=== PATIENT | female | born 2000 | race Hispanic/Latino ===

== ENCOUNTER 2020-06-28 13:14 | Emergency (ER) | payer OTHER, SELFPAY ==
--- NOTE | 2020-06-28 14:58 | RAD REPORT ---
EXAM DESCRIPTION: US - Transvaginal OB - 06/28/2020 2:44 pm CLINICAL HISTORY: VAGINAL BLEEDING COMPARISON: No comparisons FINDINGS: A normal IUP is not seen within the endometrium. The endometrium measures 8 mm and is hete rogenous with fluid present. Right ovarian cyst is present measuring 3 cm. Left ovary is normal. Normal Doppler blood flow was dem onstrated to both ovaries. IMPRESSION: No normal IUP is seen. In the setting of a positive HCG level, this would indicate a pre gnancy of unknown location. Recommend follow-up serial HCG levels and follow-up ultrasound in 7-10 da ys.
[2020-06-28 15:06] LABS: Urine Blood 3+ (NEG); Urine Glucose NEGATIVE (NEG); Urine Protein TRACE (NEG); Urine Specific Gravity 1.025 (1.005-1.030)
[2020-06-28 18:03] LABS: Absolute Lymphocytes (CBC) 3.8 K/uL (0.7-4.9); Basophils % 0.6 % (0-1.3); Hematocrit 40.5 % (36.0-45.0); Lymphocytes % 24.7 % (15.3-44.8); RBC Red Blood Cell Count 4.63 M/uL (3.86-4.86)
[2020-06-28 18:32] LABS: Potassium 3.7 mmol/L (3.5-5.1)
--- NOTE | 2020-06-28 18:38 | EDPHYS ---
Physician Documentation [facility] Name: Smiley Jett Age: 19 yrs Sex: Female : 2000 Arrival Date: 06/28/2020 Time: 13:16 Bed 20 Private MD: ED Physician Hi Lewis HPI: 06/28 17:58 This 19 yrs old Female presents to ER via Ambulatory with complaints of kb Vaginal Bleeding, Dizziness. 17:58 The patient presents with vaginal bleeding that is moderate, with clots. Onset: The kb symptoms/episode began/occurred 12 day(s) ago. Modifying factors: The symptoms are alleviated by nothing, the symptoms are aggravated by nothing. Associated signs and symptoms: Pertinent positives: vaginal bleeding. Severity of symptoms: At their worst the symptoms were moderate, in the emergency department the symptoms are unchanged. The patient's method of control includes nexplanon. The patient has not experienced similar symptoms in the past. The patient has not recently seen a physician. Pt reports her period started on 06/16/20 and the flow has gotten worse over the last few days. States she has been fatigued and lightheaded at times so she called her [employer] and was told to come to the ER for eval. Historical: - Allergies: 13:26 PENICILLINS; ss - PMHx: 13:26 Ovarian cyst; fibroid; ss - Immunization history:: Adult Immunizations up to date. - Social history:: Smoking status: Patient denies any tobacco usage or history of. ROS: 17:51 Constitutional: Negative for fever, chills, and weight loss, Cardiovascular: Negative kb for chest pain, palpitations, and edema, Respiratory: Negative for shortness of breath, cough, wheezing, and pleuritic chest pain, Abdomen/GI: Negative for abdominal pain, nausea, vomiting, diarrhea, and constipation, MS/Extremity: Negative for injury and deformity, Skin: Negative for injury, rash, and discoloration. 17:51 : Positive for vaginal bleeding. 17:51 Neuro: Positive for dizziness. Exam: 17:58 Constitutional: This is a well developed, well nourished patient who is awake, alert, kb and in no acute distress. Head/Face: Normocephalic, atraumatic. Chest/axilla: Normal chest wall appearance and motion. Nontender with no deformity. No lesions are appreciated. Cardiovascular: Regular rate and rhythm with a normal S1 and S2. No gallops, murmurs, or rubs. Normal PMI, no JVD. No pulse deficits. Respiratory: Lungs have equal breath sounds bilaterally, clear to auscultation and percussion. No rales, rhonchi or wheezes noted. No increased work of breathing, no retractions or nasal flaring. Abdomen/GI: Soft, non-tender, with normal bowel sounds. No distension or tympany. No guarding or rebound. No evidence of tenderness throughout. Skin: Warm, dry with normal turgor. Normal color with no rashes, no lesions, and no evidence of cellulitis. MS/ Extremity: Pulses equal, no cyanosis. Neurovascular intact. Full, normal range of motion. Neuro: Awake and alert, GCS 15, oriented to person, place, time, and situation. Cranial nerves II-XII grossly intact. Motor strength 5/5 in all extremities. Sensory grossly intact. Cerebellar exam normal. Normal gait. Vital Signs: 13:22 BP 131 / 81; Pulse 74; Resp 15; Temp 97.0(TE); Pulse Ox 98% on R/A; Weight 74.84 kg; ss Height 5 ft. 2 in. (157.48 cm); Pain 0/10; 17:50 BP 110 / 70; Pulse 75; Resp 18; Pulse Ox 100% on R/A; ph 19:00 BP 102 / 66 Supine; Pulse 79; ph 19:00 BP 99 / 61 Sitting; Pulse 72; ph 19:00 BP 115 / 79 Standing; Pulse 80; Resp 18; Temp 97.2; Pulse Ox 100% on R/A; ph 13:22 Body Mass Index 30.18 (74.84 kg, 157.48 cm) ss MDM: 13:28 Patient medically screened. kb 17:55 Data reviewed: vital signs, nurses notes. Data interpreted: Pulse oximetry: on room air kb is 100 %. Interpretation: normal. Counseling: I had a detailed discussion with the patient and/or guardian regarding: the historical points, exam findings, and any diagnostic results supporting the discharge/admit diagnosis, lab results, radiology results, the need for outpatient follow up, an OB/Gyne specialist, to return to the emergency department if symptoms worsen or persist or if there are any questions or concerns that arise at home. 06/28 14:14 Order name: Urine Dipstick--Ancillary (enter results); Complete Time: 15:07 bd 06/28 14:14 Order name: Urine --Ancillary (enter results); Complete Time: 15:07 bd 06/28 13:29 Order name: US Transvaginal Ob; Complete Time: 15:00 kb 06/28 14:17 Order name: CBC with Diff; Complete Time: 18:33 kb 06/28 14:17 Order name: Basic Metabolic Panel; Complete Time: 18:32 kb 06/28 14:17 Order name: Type And Screen kb 06/28 13:29 Order name: Urine Dipstick-Ancillary (obtain specimen); Complete Time: 16:39 kb 06/28 14:17 Order name: Orthostatics; Complete Time: 19:05 kb Administered Medications: No medications were administered Disposition: 06/29 07:33 Co-signature as Attending Physician, Hi Lewis MD I agree with the assessment and kdr plan of care. Disposition: 06/28/20 18:37 Discharged to Home. Impression: Abnormal uterine and vaginal bleeding, unspecified. - Condition is Stable. - Discharge Instructions: Abnormal Uterine Bleeding, [id number]. - Medication Reconciliation Form, Thank You Letter, Antibiotic Education, Prescription Opioid Use form. - Follow up: Emergency Department; When: As needed; Reason: Worsening of condition. Follow up: Private Physician; When: 2 - 3 days; Reason: Recheck today's complaints, Continuance of care, Re-evaluation by your physician. Signatures: Dispatcher [employer] [facility] Enedelia Emmanuel, ALF-C PROBATION WORKER-Hi Louis MD MD [facility] Diane Colunga RN RN ss Hall, Patricia, RN RN ph Corrections: (The following items were deleted from the chart) 06/28 19:07 18:37 06/28/2020 18:37 Discharged to Home. Impression: Abnormal uterine and vaginal ph bleeding, unspecified. Condition is Stable. Discharge Instructions: Abnormal Uterine Bleeding, [id number]. Forms are Medication Reconciliation Form, Thank You Letter, Antibiotic Education, Prescription Opioid Use. Follow up: Emergency Department; When: As needed; Reason: Worsening of condition. Follow up: Private Physician; When: 2 - 3 days; Reason: Recheck today's complaints, Continuance of care, Re-evaluation by your physician. kb
--- NOTE | 2020-06-28 18:38 | ER ---
Nurse's Notes [facility] Name: Smiley Jett Age: 19 yrs Sex: Female : 2000 Arrival Date: 06/28/2020 Time: 13:16 Bed 20 Private MD: Diagnosis: Abnormal uterine and vaginal bleeding, unspecified Presentation: 06/28 13:22 Chief complaint: Patient states: "I'm on my period and I'm bleeding a lot. I'm bleeding ss through an ultra tampon in 30 minutes. I've been feeling lightheaded and getting headaches." Pt reports her period began 06/16, but the heavy bleeding didn't start until 06/24.". Coronavirus screen: Client denies travel out of the [place] in the last 14 days. Ebola Screen: Patient denies exposure to infectious person. Patient denies travel to an Ebola-affected area in the 21 days before illness onset. Initial Sepsis Screen: Does the patient meet any 2 criteria? No. Patient's initial sepsis screen is negative. Does the patient have a suspected source of infection? No. Patient's initial sepsis screen is negative. Risk Assessment: Do you want to hurt yourself or someone else? Patient reports no desire to harm self or others. Onset of symptoms was June 16, 2020. 13:22 Method Of Arrival: Ambulatory ss 13:22 Acuity: NORMAN 3 ss Historical: - Allergies: 13:26 PENICILLINS; ss - PMHx: 13:26 Ovarian cyst; fibroid; ss - Immunization history:: Adult Immunizations up to date. - Social history:: Smoking status: Patient denies any tobacco usage or history of. Screenin:34 Abuse screen: Denies threats or abuse. Denies injuries from another. Nutritional ph screening: No deficits noted. Tuberculosis screening: No symptoms or risk factors identified. Fall Risk None identified. Assessment: 17:48 General: Appears in no apparent distress. comfortable, well groomed, Behavior is calm, ph cooperative, appropriate for age, Denies fever, feeling ill. Pain: Complains of pain in suprapubic area Quality of pain is described as crampy. Neuro: Level of Consciousness is awake, alert, obeys commands, Oriented to person, place, time, situation, Reports dizziness. Cardiovascular: Reports lightheadedness, Denies chest pain, shortness of breath, Capillary refill < 3 seconds in bilateral fingers Patient's skin is warm and dry. Respiratory: Airway is patent Respiratory effort is even, unlabored, Respiratory pattern is regular, symmetrical. GI: Abdomen is non-distended, Patient currently denies nausea, vomiting. : Reports cramping, in bilateral lower quadrant(s) vaginal bleeding that is with clots, heavy flow. Derm: Skin is intact, is healthy with good turgor, Skin is pink, warm \\T\\ dry. Musculoskeletal: Circulation, motion, and sensation intact. Range of motion: intact in all extremities. Vital Signs: 13:22 BP 131 / 81; Pulse 74; Resp 15; Temp 97.0(TE); Pulse Ox 98% on R/A; Weight 74.84 kg; ss Height 5 ft. 2 in. (157.48 cm); Pain 0/10; 17:50 BP 110 / 70; Pulse 75; Resp 18; Pulse Ox 100% on R/A; ph 19:00 BP 102 / 66 Supine; Pulse 79; ph 19:00 BP 99 / 61 Sitting; Pulse 72; ph 19:00 BP 115 / 79 Standing; Pulse 80; Resp 18; Temp 97.2; Pulse Ox 100% on R/A; ph 13:22 Body Mass Index 30.18 (74.84 kg, 157.48 cm) ss ED Course: 13:16 Patient arrived in ED. rg4 13:25 Triage completed. ss 13:26 Arm band placed on right wrist. ss 13:27 Endeelia Emmanuel [facility]. kb 13:27 Hi Lewis MD is Attending Physician. kb 14:45 US Transvaginal Ob In Process Unspecified. EDMS 17:18 Lindsay Chin, RN is Primary Nurse. ph 17:34 Patient has correct armband on for positive identification. Placed in gown. Bed in low ph position. Call light in reach. Pulse ox on. NIBP on. Door closed. Noise minimized. Warm blanket given. 17:49 Initial lab(s) drawn, by ED staff, sent to lab. Inserted saline lock: 22 gauge in right ph hand, using aseptic technique. Blood collected. 17:50 No provider procedures requiring assistance completed. ph 19:07 Primary Nurse role handed off by Lindsay Chin, RN mw2 19:07 IV discontinued, intact, bleeding controlled, No redness/swelling at site. Pressure ph dressing applied. Administered Medications: No medications were administered Outcome: 18:37 Discharge ordered by . nino 19:07 Discharged to home ambulatory. ph 19:07 Condition: good 19:07 Discharge instructions given to patient, Instructed on discharge instructions, follow up and referral plans. Demonstrated understanding of instructions, follow-up care. 19:07 Patient left the ED. ph Signatures: Dispatcher [employer] [facility] Enedelia Emmanuel, ALF-C ALF-Diane Lin RN RN Lindsay Aguilar RN RN Mariaelena Julio 4 Marlen Ramires [id number]
[2020-06-28 19:28] VITALS: O2SAT 100
[2020-06-28 19:30] VITALS: BP 115/79; TEMP 97.2
== END 2020-06-28 19:07 | disposition home or self-care (01) ==
LOC: ER 13:14
DX: N93.9 Abnormal uterine and vaginal bleeding, unspecified (principal)
CPT/HCPCS: 36415; 76817; 80048; 81003; 81025; 85025; 86850; 86900; 86901; 99284